=== PATIENT | male | born 1965 | race Caucasian/White ===

== ENCOUNTER 2024-05-08 12:55 | Emergency (ER) | payer SELFPAY ==
[2024-05-08 13:05] VITALS: BP 137/91
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
[2024-05-08 16:00] VITALS: BP 101/69
[2024-05-08] MEDS: MOTRIN 600 MG PO (16:07)
[2024-05-08 19:50] VITALS: BP 110/67
[2024-05-08] MEDS: TYLENOL 650 MG PO (19:56)
== END 2024-05-08 20:02 | disposition home or self-care (01) ==
LOC: EMR 12:55
PROVIDERS: EMERGENCY PHYSICIAN Student in an Organized Health Care Education/Training Program; FAMILY PHYSICIAN Family Medicine
DX: S16.1XXA Strain of muscle, fascia and tendon at neck level, initial encounter (principal); S20.219A Contusion of unspecified front wall of thorax, initial encounter; V43.52XA Car driver injured in collision with other type car in traffic accident, initial encounter; Y92.410 Unspecified street and highway as the place of occurrence of the external cause; E11.9 Type 2 diabetes mellitus without complications
CPT/HCPCS: 99284; 71111; 72125

== ENCOUNTER → 2024-07-08 11:45 | Outpatient (REF) | payer OTHER, SELFPAY | LOC: MRI 3T 11:45 | PROVIDERS: ATTENDING PHYSICIAN Pain Medicine Pain Medicine; FAMILY PHYSICIAN Family Medicine | DX: M54.2 Cervicalgia (principal); M54.12 Radiculopathy, cervical region | CPT/HCPCS: 72141 ==

== ENCOUNTER → 2025-05-23 13:10 | Outpatient (REF) | payer OTHER, SELFPAY | LOC: PAVMRI 13:10 | PROVIDERS: ATTENDING PHYSICIAN Internal Medicine Nephrology | DX: M25.512 Pain in left shoulder (principal) | CPT/HCPCS: 73221 ==